=== PATIENT | female | born 1980 | race Hispanic/Latino ===

== ENCOUNTER 2017-11-19 20:17 | Inpatient (IN) | payer OTHER ==
[2017-11-19 21:42] VITALS: BMI 28.1
--- NOTE | 2017-11-19 23:05 | OBHP ---
Datetime: 11/19/2017 22:56 IP Adm Impression: Term, intrauterine ; No Active Labor IP Admit Plan: Admit to unit; Initiate labor induction protocol Admit Comment, IP Provider: 37yo with IUP at 39.3 weeks here today for induction of labor. Elayne ent denies any VB or LOF but feels good movement. PNC with Dr Beaulieu; BPD of the baby on ultrasound was lagging by 4 weeks and IOL was recommended at 39weeks. O: afebrile Heart: RRR Chest: CTA B/L TOCO: Irregular contractions FHR- Category 1 SVE: Assessment: IUP at 39wks Encounter for IOL NST reactive Plan Admit to LND For cervical ripening with Cervidil. Pelvic Type - PN: Adequate Extremities - PN: Normal Abdomen - PN: Normal Back - PN: Normal Breast - PN: Normal Lungs - PN: Normal Heart - PN: Normal Thyroid - PN: Normal Neurologic - PN: Normal HEENT - PN: Normal General - PN: Normal FHR - Baseline A Provider: 140 Gestation - Est Wks by US: 39.0 EGA AdmitDate IP: 39.3 Vital Signs Provider: Reviewed IP Chief Complaint: Scheduled induction of labor; Maternal discomfort NICHD Variability Prov Fetus A: Moderate 6-25bpm NICHD Accel Fetus A IP Provider: [id number] FHR Category Provider Fetus A: Category I NICHD Decel Fetus A IP Provider: None Genitourinary Exam: Normal DTRs - PN: Normal
[2017-11-19] MEDS ORDERED: Lactated Ringer's 1,000 ML IV SCH (23:15)
[2017-11-20] LABS: BASO # 0.1 K/uL (0.0-0.2); BASO % 0.7 % (0.0-2.0); EOS # 0.1 K/uL (0.0-0.7); EOS % 1.3 % (0.0-4.0); HEMOGLOBIN 12.3 g/dL (12.0-16.0); LYMPH # 2.1 K/uL (1.0-4.3); MEAN CELL VOLUME 87.9 fl (81.0-99.0); MEAN CORPUSCULAR HEMOGLOBIN 30.5 pg (27.0-31.0); MEAN CORPUSCULAR HGB CONC 34.7 g/dL (33.0-37.0); MEAN PLATELET VOLUME 8.7 fl (7.2-11.7); MONO # 0.8 K/uL (0.0-0.8); MONO % 7.2 % (0.0-10.0); NEUT # 7.5 K/uL (1.8-7.0); NEUT % 70.8 % (50.0-75.0); RBC 4.03 Mil/uL (3.80-5.20); WHITE BLOOD COUNT 10.5 K/uL (4.8-10.8)
[2017-11-20] MEDS ORDERED: Lactated Ringer's 1,000 ML IV SCH (15:00)
--- NOTE | 2017-11-20 15:26 | OBPN ---
Datetime: 11/20/2017 15:00 IP Progress Impression: Normal progression of labor IP Informed Consent Obtain: Vaginal Delivery IP Procedures: Sterile Vag Exam IP Progress Plan: Continue present management Contraction Comments Provider: 2-5 mins FHR - Baseline A Provider: 125 IP Progress Note Comment: Patient feeling increased pain with contractions, would like an epidural VE=4/50/-3 [id number]=[id number] mod josiane, +accels, no decels TOCO = q 2-5 mins A/P 1. Patient would like epidural for pain, now 4 cm 2. CEFM and TOCO 3. Will re-evaluate after, possibly continue induction with Pitocin NICHD Accel Fetus A IP Provider: [id number] NICHD Variability Prov Fetus A: Moderate 6-25bpm Dilatation, Provider: 4 Effacement, Provider: 50 Station, Provider: -3 NICHD Decel Fetus A IP Provider: None Datetime: 11/20/2017 09:30 Vital Signs Provider: Reviewed; Within Normal Limits Datetime: 11/19/2017 22:56 Membranes, Provider: Intact Gestation - Est Wks by US: 39.0 Presentation-Admit: Vertex FHR Category Provider Fetus A: Category I
[2017-11-20] MEDS ORDERED: Oxytocin 30 UNIT 30 UNITS/500 ML BAG IV ONE ×2 (15:42→18:00)
[2017-11-20] MEDS ORDERED: Fentanyl/Bupivacaine HCl 250 ML EPI ONE (16:04)
[2017-11-20] MEDS ORDERED: Lidocaine 2% MPF (5 ml) Inj ONE (19:36)
[2017-11-20] MEDS ORDERED: Benzocaine/Menthol SPRAY TOP PRN (21:56)
[2017-11-20] MEDS ORDERED: Oxycodone/Acetaminophen 5/325 mg Tab PO PRN ×2 (21:56)
--- NOTE | 2017-11-20 21:57 | OBDS ---
MATERNAL INFORMATION Medications in Delivery: cervidil, cytotec Provider Comments: of live female over intact perineum in [place] with compound presentation, follo wed by shoulders and rest of infant, 7lbs 4oz, 9/9, mouth and nose suctioned, cord clamped and cut, i nfant placed on mother's chest, cord blood obtained, placenta delivered spontaneously, fundus firm, 2 nd degree laceration repaired with 2-0 vicryl rapide, EBL = 100mL, pt tolerated procedure LABOR SUMMARY EDC: 11/23/2017 00:00 No. Babies in Womb: 1 Attempted: No LABOR INFORMATION Reason for Induction: Intrauterine Growth Retardation Onset of Labor: 11/20/2017 14:45 Cervical Ripening Agents: Cervidil; Cytotec @ Group B Beta Strep: Negative Steroids Given: None Reason Steroids Not Administered: Not Applicable MEMBRANES Membranes Rupture Method: Spontaneous Rupture of Membranes: 11/20/2017 15:40 Amniotic Fluid Color: Clear Amniotic Fluid Amount: Moderate Amniotic Fluid Odor: Normal
[2017-11-21] MEDS ORDERED: Oxycodone/Acetaminophen 5/325 mg Tab PO PRN ×2 (00:12)
[2017-11-21] MEDS: Benzocaine/Menthol SPRAY TOP PRN (02:30)
[2017-11-21] MEDS: Multivitamin With Minerals Tab PO SCH (08:45)
[2017-11-21 08:58] LABS: BASO % 0.3 % (0.0-2.0); EOS # 0.1 K/uL (0.0-0.7); EOS % 0.9 % (0.0-4.0); LYMPH # 1.5 K/uL (1.0-4.3); LYMPH % 10.9 % (20.0-40.0); MEAN CORPUSCULAR HEMOGLOBIN 30.6 pg (27.0-31.0); MEAN CORPUSCULAR HGB CONC 34.8 g/dL (33.0-37.0); MEAN PLATELET VOLUME 8.1 fl (7.2-11.7); MONO # 0.7 K/uL (0.0-0.8); MONO % 5.5 % (0.0-10.0); NEUT # 11.1 K/uL (1.8-7.0); NEUT % 82.4 % (50.0-75.0); RBC 3.91 Mil/uL (3.80-5.20); RED CELL DISTRIBUTION WIDTH 13.1 % (11.5-14.5); WHITE BLOOD COUNT 13.4 K/uL (4.8-10.8)
[2017-11-21] MEDS ORDERED: Multivitamin With Minerals Tab PO SCH (09:00)
--- NOTE | 2017-11-21 11:01 | OBPPN ---
Datetime: 11/21/2017 10:57 PP Pain Prov: Within normal limits PP Nausea Prov: Denies PP Flatus Prov: Yes PP BM Prov: No PP Breasts Prov: Normal PP Heart Prov: Normal PP Lungs Prov: Normal PP Abdomen/Uterus Prov: Normal PP Extremities Prov: Normal PP Progress Prov: Normal PP Comments Phys Exam Prov: fundus 2cm below umbilicus firm nt breast: nonengorged; nipple: no cracking/fissures, mild erythema PP Impression Prov: Normal progression PP Plan Prov: Continue present management PP Progress Note Prov: s: tolerating reg diet; perineal pain improved since yesterday. no c/o i: s/p doing well p: rout pp care seen by obiee consultant today for breast nipple gel pads IP PP Procedures: None Vital Signs Provider PP: Reviewed; Within Normal Limits
[2017-11-22] MEDS: Multivitamin With Minerals Tab PO SCH (08:04)
--- NOTE | 2017-11-22 10:04 | OBPPN ---
Datetime: 11/22/2017 10:01 PP Pain Prov: Within normal limits PP Nausea Prov: Denies PP Flatus Prov: Yes PP Breasts Prov: Not Done PP Heart Prov: Normal PP Lungs Prov: Normal PP Abdomen/Uterus Prov: Normal PP Lochia Prov: Not Done PP Vulva/Perineum Prov: Not Done PP CVA Tenderness Prov: Normal PP Extremities Prov: Normal PP Progress Prov: Normal PP Impression Prov: Normal progression PP Plan Prov: Discharge PP Progress Note Prov: Patient doing well reports minimal lochia ambulating tolerating diet and pain well-controlled with Motrin Vital signs stable afebrile Uterus firm below the umbilicus Extremities no Homans day #2 Discharge home, follow-up in 6 weeks, nothing per vagina, no heavy lifting, Motrin as needed Vital Signs Provider PP: Reviewed
--- NOTE | 2017-11-22 10:04 | OBDCSUM ---
Datetime: 11/22/2017 10:02 Discharged to, Provider: Home Follow up at, Provider: [facility] Disch Instr Activity: Normal activity Disch Instr Diet: Regular Discharge Instructions, Provider: Routine instructions given Discharge Diagnosis, Provider: Term Delivered Follow up in weeks, Provider: 6 weeks Disch Referrals: None Contraception discussed, Prov: Yes Disch Activity Restrictions: No sexual activity; Nothing in vagina - Cherry, tampons, douche Discharge Comment, Provider: Patient cleared for discharge Contraception after Delivery: Undecided
[2017-11-22] MEDS: Benzocaine/Menthol SPRAY TOP PRN (12:04)
[2017-11-22 21:54] VITALS: BP 121/67; PULSE 78; RESP 20; TEMP 98.4; O2SAT 99
== END 2017-11-22 12:30 | disposition home or self-care (01) | DRG 775 ==
LOC: H.EROB2 20:17 → H.L&D 23:05 → MERGE 23:05 → H.OB/GYN 11-21 00:10
PROVIDERS: ADMIT Obstetrics & Gynecology; ATTEND Obstetrics & Gynecology
PROC: 4A1HXCZ Monitoring of Products of Conception, Cardiac Rate, External Approach (ICD-10-PCS; 2017-11-19)
PROC: 10E0XZZ Delivery of Products of Conception, External Approach (ICD-10-PCS; principal; 2017-11-20)
PROC: 0KQM0ZZ Repair Perineum Muscle, Open Approach (ICD-10-PCS; 2017-11-20)
DX: O36.5930 Maternal care for other known or suspected poor fetal growth, third trimester, not applicable or unspecified (principal); O32.6XX0 Maternal care for compound presentation, not applicable or unspecified; O70.1 Second degree perineal laceration during delivery; Z37.0 Single live birth; Z3A.39 39 weeks gestation of pregnancy; O09.523 Supervision of elderly multigravida, third trimester